=== PATIENT | male | born 1955 | race Caucasian/White ===

== ENCOUNTER 2018-01-16 07:53 | Emergency (ER) | payer SELFPAY ==
[~2018-01-16] VITALS: Ht 198.1 cm; Wt 118.0 kg
[~2018-01-16 07:53] MED LIST: AMOXICILLIN/CL875 MG OR; AMOXICILLIN500 MG PO; EQ IBUPROFEN200 MG OR; MEDDOSEPAK PO; NASACORT AQ55 MCG/AC; PSEUDOEPHEDRIN120 MG OR; ROCEPHIN 1 GM1 GM IJ; ZOFRAN ODT4 MG PO; ZPAK PO
[2018-01-16] MEDS ORDERED: BACTRIM DS1 TAB PO (08:06)
[2018-01-16] MEDS ORDERED: SILVADENE1 % EX (08:06)
[2018-01-16 08:10] VITALS: BP 160/86
== END 2018-01-16 08:25 | disposition home or self-care (01) | DRG 935 ==
LOC: ED 07:53
PROC: 2W2EX4Z Dressing of Right Hand using Bandage (ICD-10-PCS; principal; 2018-01-16)
DX: T23.231A Burn of second degree of multiple right fingers (nail), not including thumb, initial encounter (principal); T31.0 Burns involving less than 10% of body surface; I25.2 Old myocardial infarction; X19.XXXA Contact with other heat and hot substances, initial encounter; Y93.89 Activity, other specified; Y92.89 Other specified places as the place of occurrence of the external cause; Y99.0 Civilian activity done for income or pay; Z95.5 Presence of coronary angioplasty implant and graft

== ENCOUNTER 2018-06-27 15:36 | Emergency (ER) | payer SELFPAY ==
[~2018-06-27] VITALS: Ht 198.1 cm; Wt 118.0 kg
[~2018-06-27 15:36] MED LIST changes: +BACTRIM DS1 TAB PO; +SILVADENE1 % EX
[2018-06-27 16:02] LABS: GFR > 60 ML/MIN (>=60 (CALC)); GFR FOR AFR.AMER. > 60 ML/MIN (>=60 (CALC))
[2018-06-27 16:05] LABS: HEMATOCRIT 43.2 % (39.0-50.0); HEMOGLOBIN 14.4 g/dl (14.0-18.0); IMMATURE GRANULOCYTES 0.3 % (0.0-5.0); MEAN CELL VOLUME 92.1 fL CALC (80.0-100.0); MEAN CORPUSCULAR HGB 30.7 pG CALC (26.0-32.0); MEAN CORPUSCULAR HGB CONC 33.3 g/L CALC (32.0-36.0); NEUT# 5.32 thou/uL (1.82-7.42); RED BLOOD COUNT 4.69 mill/uL (4.70-6.10); RED CELL DISTRI WIDTH 13.5 % (11.5-15.5)
[2018-06-27] MEDS ORDERED: ATORVASTATIN CA20 MG PO (16:10)
[2018-06-27] MEDS ORDERED: ADULT ASPIRIN R81 MG PO (16:11)
[2018-06-27] MEDS ORDERED: METOPROL TAR25 MG PO (16:11)
[2018-06-27 16:31] LABS: INTERNATIONAL NORMALIZED RATIO 0.9 RATIO (0.7-1.3); PROTHROMBIN TIME 9.6 SECONDS (9.0-12.5)
[2018-06-27 16:42] LABS: ANION GAP 16 (6-22 (CALC)); BUN 18 mg/dL (8-23); BUN/CREATININE RATIO 27 (12-20 (CALC)); CARBON DIOXIDE 24 mmol/l (22-30); CHLORIDE 105 mmol/l (95-108); CREATININE 0.7 mg/dL (0.7-1.3); GFR > 60 ML/MIN (>=60 (CALC)); GFR FOR AFR.AMER. > 60 ML/MIN (>=60 (CALC)); POTASSIUM 4.3 mmol/l (3.5-5.1); SODIUM 141 mmol/l (137-146)
[2018-06-27 18:42] LABS: BARBITURATES NEGATIVE (NEGATIVE); COCAINE NEGATIVE (NEGATIVE); METHADONE NEGATIVE (NEGATIVE); OXCYCODONE NEGATIVE (NEGATIVE); TETRAHYDROCANNABIONOL NEGATIVE (NEGATIVE); TRICYLIC ANTIDEPRESSANTS NEGATIVE (NEGATIVE)
[2018-06-27] MEDS ORDERED: MOTRIN400 MG PO (19:03)
[2018-06-27 19:20] VITALS: BP 177/90
== END 2018-06-27 19:19 | disposition home or self-care (01) | DRG 103 ==
LOC: ED 15:36
PROVIDERS: Family Medicine
PROC: 009U3ZX Drainage of Spinal Canal, Percutaneous Approach, Diagnostic (ICD-10-PCS; principal; 2018-06-27)
DX: G43.909 Migraine, unspecified, not intractable, without status migrainosus (principal); I25.2 Old myocardial infarction; Z95.5 Presence of coronary angioplasty implant and graft
CPT/HCPCS: J0131; Q9967

== ENCOUNTER 2023-08-20 07:52 | Day surgery (SDC) | payer MEDICARE ==
[~2023-08-20] VITALS: Ht 200.7 cm; Wt 127.0 kg
[~2023-08-20 07:52] MED LIST changes: +ADULT ASPIRIN R81 MG PO; +ATORVASTATIN CA20 MG PO; +CRESTOR20 MG PO; +METOPROL TAR25 M1 PO; +METOPROL TAR25 MG PO; +MOTRIN400 MG PO; +NORVASC PO; +VALSARTAN80 MG PO
[2023-08-20] MEDS ORDERED: LACTATED RINGER'S 1,000 ML IV ONE (07:56)
[2023-08-20] MEDS ORDERED: FAMOTIDINE 10MG/ML 2ML SDV IV ONE (07:56)
[2023-08-20 10:38] VITALS: BP 130/88
[2023-08-20] MEDS ORDERED: PROPOFOL 200 MG/20 ML VIAL IV ONE (13:24)
[2023-08-20] MEDS ORDERED: LIDOCAINE HCL 2% 2ML SDV IV ONE (13:24)
== END 2023-08-20 10:55 | disposition home or self-care (01) ==
LOC: ORM 07:52
PROVIDERS: ATTEND Surgery
PROC: 0DJD8ZZ Inspection of Lower Intestinal Tract, Via Natural or Artificial Opening Endoscopic (ICD-10-PCS; principal; 2023-08-20)
DX: K59.00 Constipation, unspecified (principal); K92.1 Melena; K64.8 Other hemorrhoids; I10 Essential (primary) hypertension; Z95.5 Presence of coronary angioplasty implant and graft